=== PATIENT | female | born 1995 | race Caucasian/White ===

== ENCOUNTER 2024-09-11 00:17 | Day surgery (SDC) | payer BC, SELFPAY ==
[2024-09-02 15:14] VITALS: BMI 32.3
--- NOTE | 2024-09-02 15:39 | PC.NURSE ---
Report to the Outpatient Waiting Room, entrance under the green pavilion located off [facility], at time __10:00AM on date ___09/11/24____. Planned Procedure Time: __12:00PM .? Time changes happen often and if your time is changed the preop area will call you the afternoon before. - You and your visitor will be asked to self-screen and do not enter if you have any COVID symptoms. Please call surgeon if you need to reschedule. - A mask is optional within the hospital at this time. Patients may have clear liquids (water, carbonated beverages, clear teas, apple juice) until 3 hours prior to surgery with a maximum of 20 ounces. - No food from midnight until time of surgery and no smoking. This includes no chewing gum, candy or mints. Take only the following medications with a SIP of water on the morning of surgery: ALBUTEROL & ZOFRAN NEEDED. DO NOT STOP ANY OF YOUR OTHER PRESCRIPTION MEDICATIONS PRIOR TO SURGERY EXCEPT THE FOLLOWING Medications to discontinue per physician NONE Date to take last dose Please no make-up, nail turkmen, hairspray, perfume, deodorant, or body powder the day of surgery.? No jewelry (including any body piercings) or valuables the day of surgery, leave them at home.? Please take a shower or bath the night before, or the morning of, surgery with an antibacterial soap.? Wear comfortable, loose fitting clothing.? Children are encouraged to wear pajamas. - Jewelry must be removed prior to entering the operating room.? Rings and piercings that are not removed may be cut off. - The hospital will not accept responsibility for valuables.? - Please leave all valuables, including medications, at home the day of surgery. If you are going home after surgery, a licensed flatbed truck driver must drive you home.? - NO public transportation without another adult if you receive anesthesia. - We recommend that an adult stay with you for 24 hours following discharge. - We also recommend that you do not drive, make important decision, drink alcoholic beverages, or take any drugs that were not prescribed by your health care provider for at least 24 hours after your discharge time. Follow any additional instructions given to you from your surgeon. Telephone instructions given to PATIENT and asked if any additional questions and then verbalized understanding. Patient advised to call surgeon office or pre surgery nurse liaison [phone] if any additional questions.
[2024-09-11] VITALS (8 sets, daily range): BP systolic 109–137; BP diastolic 80–90; PULSE 94–120; RESP 13–20; TEMP 35.9–36.1; O2SAT 98–100
[2024-09-11] MEDS: ACETAMINOPHEN 500 MG TABLET 1000 MG PO (11:00)
[2024-09-11] MEDS: LACTATED RINGERS 1,000 ML 30 ML IV CONT (11:00)
[2024-09-11] MEDS: KETOROLAC 15 MG/ML VIAL (*BKC) IV PUSH (11:00)
[2024-09-11 11:06] LABS: BEDSIDEPREGUCG Negative (Negative)
--- NOTE | 2024-09-11 11:14 | WPDANESEPPF ---
Anes - Initial Pre Proc Eval Procedure: Operation Date: 09/11/24 12:00 Proposed Procedures p Anal Fistulotomy, Rectal Examination Under Anesthesia - Fritz Leo DO Date/Time: 09/11/24 11:14 Surgeon: Fritz Leo DO Pre Op Diagnosis: Anal Fistulotomy IBS Patient Data Age: 29 Gender: F Height: 1.52 m Weight: 77.1 kg Last Vital Signs Temp 96.7 F L 09/11/24 11:00 Pulse 113 H 09/11/24 11:00 Resp 14 09/11/24 11:00 BP 137/83 09/11/24 11:00 Pulse Ox 100 09/11/24 11:00 O2 Del Method Room Air 09/11/24 11:00 Allergies Allergy/AdvReac Type Severity Reaction Status Date / Time clavulanic acid (From Allergy RASH Verified 09/11/24 11:06 Augmentin) penicillin G Allergy Rash Verified 09/11/24 11:06 ciprofloxacin AdvReac Nausea and Verified 09/11/24 11:06 Vomiting Home Medications ?Medication ?Instructions ?Recorded ?Confirmed ?Type albuterol sulfate 90 mcg/actuation 1 inh inhalation Q4H PRN shortness 07/21/24 09/02/24 History aerosol inhaler of breath or wheezing amitriptyline 50 mg tablet 50 mg PO DAILY 07/21/24 09/02/24 History atogepant 30 mg tablet (Qulipta) 30 mg PO DAILY 07/21/24 09/02/24 History drospirenone (contraceptive) 4 mg 4 mg PO DAILY 07/21/24 09/02/24 History (28) tablet (Slynd) duloxetine 60 mg capsule,delayed 60 mg PO DAILY 07/21/24 09/02/24 History release (Cymbalta) hydroxyzine HCl 10 mg tablet 10 mg PO DAILY 07/21/24 09/02/24 History ketorolac 10 mg tablet 10 mg PO .prn PRN pain 07/21/24 09/02/24 History methocarbamol 500 mg tablet 500 mg PO QHS PRN muscle spasm 07/21/24 09/02/24 History omeprazole 40 mg capsule,delayed 40 mg PO DAILY 07/21/24 09/02/24 History release ondansetron HCl 4 mg tablet 4 mg PO Q8H PRN nausea and vomiting 07/21/24 09/02/24 History colestipol 1 gram tablet 1 g PO BID PRN diarrhea 09/02/24 09/02/24 History Laboratory Tests 09/11/24 10:15 POC Urine HCG, Qual Negative (Negative) Patient hx anesthesia problems: none Family hx anesthesia problems: none Results Review: All pre-operative results and documents have been reviewed as part of the pre-operative evaluation. [facility] Past Medical History Medical History Boil of buttock Lower abdominal pain Chest pain Dysphagia IBS (irritable bowel syndrome) GERD (gastroesophageal reflux disease) Anxiety Asthma Allergies Surgical History Surgical History History of laparoscopy History of tonsillectomy and adenoidectomy Family History Family History Mother Diabetes mellitus Other Lung cancer Skin cancer Social History Social History Smoking status: Never smoker Second hand tobacco smoke exposure: No Alcohol intake: never Substance use: never Anes - Eval Final PreProcedure Day of Procedure 09/11/24 11:14 Patient weight: obese Heart: regular rate and rhythm Lungs: clear to auscultation Airway: Mallampati scale class II Neurological: alert and oriented Last oral intake: >/= 8 hours ASA classification: III Emergent: no Anesthetic plan: proceed Anesthesia type and monitoring: general LMA and standard monitoring Results Review: All pre-operative results and documents have been reviewed as part of the pre-operative evaluation. Asthma, stable of recent. Hx of tracheomalacia per parents w prev bronch dx. Pt without any further information and unable to access records from [facility]. Pt has no symptoms of dyspnea or cp w activity. Informed Consent: The patient's anesthetic plan and its attendant risks and benefits were discussed with the patient/family/POA. Questions were solicited and answers provided to the satisfaction of the patient/family/POA.
--- NOTE | 2024-09-11 11:23 | WPDHPUPDATE1 ---
History and Physical Update Update Date/Time: 09/11/24 11:23 History and Physical has been reviewed, including an updated exam of the patient. There are NO changes in the patient's condition. Risks, benefits, and alternatives have been discussed and questions answered. Patient agrees to proceed with procedure.
[2024-09-11] MEDS: ceFAZolin 2 GM/D5W 50 ML 2 GM/50 ML BAG IVPB (11:46)
[2024-09-11] MEDS: BUPIVACAINE/EPINEPHRINE 0.5% 50 ML VIAL 30 ML INFILTRATE (11:58)
--- NOTE | 2024-09-11 12:29 | P.OP_ITS ---
Procedure Note - Detailed Date of Procedure 09/11/24 Pre-op Diagnosis Anal Fistula Post-op Diagnosis Same (Intersphincteric anal fistula) Procedure Performed Rectal exam under anesthesia with intersphincteric anal fistulotomy Surgeon Fritz Leo, DO Anesthesia General and Local (0.5% bupivacaine with epinephrine) Indications This is a 29-year-old woman who presented with intermittent drainage from a small wound near her anus. She has a prior history of a perianal abscess and has been doing with this for several months. 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 Discussions were made with the patient about treatment options and decision was made to proceed with rectal exam under anesthesia with anal fistulotomy. Findings Rectal exam under anesthesia was performed. Patient had an external wound opening in the left anterior region about 2 cm from the anal verge. This tract internally to the anterior midline anal canal. This appeared to encompass a few sphincter muscle fibers but did not appear to go suprasphincteric. A fistuloto my incision was made directly over the fistula tract. The chronic granulation tissue was debrided with electrocautery to aid with healing. No specimens were obtained for pathology. No other anorectal abnormalities were noted. Description of Procedure Procedure as well as risks, benefits, and alternatives were discussed with the patient. Written consent was obtained and placed in chart prior to procedure. Patient was brought back to surgical suite. She was placed supine on operating table. Time-out was done to confirm patient and procedure. She was then intubated by the anesthesia department. She was then repositioned into dorsal lithotomy position. Her perirectal area was prepped and draped in sterile fashion using Betadine prep. Digital rectal exam was initially performed. A medium Hill-Romero anoscope was then inserted and the anal rectal canal was carefully inspected. The left anterior wound opening was identified on the left perianal skin. A small lacrimal probe was inserted through this opening and this was gently tract along its path into the anterior midline. The fistula tract was identified all the way to the internal opening. 0.5% bupivacaine with epinephrine was infiltrated locally around this area and then an incision was made using a 15 blade scalpel directly over the tract. Electrocautery was then used for hemostasis and for dissection through the subcutaneous tissue and through the few internal sphincter muscle fibers until the fistula tract was completely opened up. Electrocautery was then used to debride the chronic granulation tissue within the fistula tract. The wound was then irrigated with sterile saline no other abnormalities were identified and hemostasis appeared adequate. Xeroform gauze was then applied followed by 4 x 4 gauze, ABD pad, and mesh underwear. The patient was then awakened from anesthesia, extubated, and transferred to recovery. Estimated Blood Loss 5 Complications No immediate complications Condition Stable Disposition Same day [facility] Billing Surgery - Charge Forward: Surgery Billing
--- OUTSIDE RECORDS SUMMARY | 2024-09-18 00:48 | XMS_ITS ---
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 Name Role Phone MikeyDemetria Primary Care Provider Migration, Provider Unavailable Unavailable Allergies Allergen (clinical drug ingredient) Drug/Non Drug Allergy documented on EMR Reaction Allergy Type Onset Date Status Penicillin G Benzathine Unknown Drug Allergy Active ciprofloxacin Cipro Unknown Drug Allergy Act paresh amoxicillin / clavulanate Augmentin Unknown Drug Allergy Active REASON FOR VISIT [facility] To [facility] Conversion Encounter Medications Medication SIG (Take, Route, Frequency, Duration) Notes Start Date End Date Status hydrOXYzine HCl 10 MG/5ML 10 mL orally 4 times a day 03/26/2024 Active Amitriptyline HCl 50 MG 1 tab(s) orally once a day (at bedtime) for 30 day(s) 03/26/2024 Active Ondansetron HCl 4 MG 1 tab(s) orally sharron ry 8 hours 03/26/2024 Active Albuterol Sulfate HFA 108 (9 0 Base) MCG/ACT for 16 Days Active Levocetirizine Dihydrochloride 5 MG 1 tab(s) orally once a day (in the evening) for 30 day(s) 03/26/2024 Active Sertraline HCl 25 MG 1 tab(s) orally onc e a day Active Qulipta 30 MG for 30 Days Acti ve Methocarbamol 500 MG for 8 Days Active Slynd 4 MG for 28 Days Active Ketorolac Tromethamine 10 MG 1 tab(s) or ally 4 times a day for 5 day(s) 03/26/2024 Active Naratriptan HCl 1 MG 1 tab(s) orally onc e a day Active [facility]ters En[facility] [address] [address] [facility] Provider Migration Plan Of Treatment No Information Progress Notes * Tee PACHECOOB:1995 (29 yo F)Acc No.[id number]:08/01/2024 Patient:?Obdulia PACHECO Provider:?Provider Migration :1995???Age:29 Y???Sex:Female D ate:08/01/2024 Phone: Address:[address] [place] [address] , [facility], [id number] Pcp:Demetria Jensen Subjective: * Chief Complaints: * ???1. Multum To Medispan Con version Encounter. * Medical History:? * Medications:?Taking Naratrip grant HCl 1 MG Tablet 1 tab(s) orally once a day , Taking Sertraline HCl 25 MG Tablet 1 tab(s) orally once a day , Taking Qulipta(Atogepant) 30 MG Tablet , Taking Methocarbamol 500 MG Tablet , Taking Slynd(Drospirenone) 4 MG Tablet , Taking Ketorolac Tromethamine 10 MG Tablet 1 tab(s) orally 4 times a day , Taking hydrOXYzine HCl 10 MG/5ML Syrup 10 mL orally 4 times a day , Taking Amitriptyline HCl 50 MG Tablet 1 tab(s) orally once a day (at bedtime) , Taking Ondansetron HCl 4 MG Tablet 1 tab(s) orally every 8 hours , Taking Albuterol Sulfate HFA 108 (90 Base) MCG/ACT Aerosol Solution , Taking Levocetirizine Dihydrochloride 5 MG Tablet 1 tab(s) orally once a day (in the evening) * Allergies:?Penicillin G Bandar athine, Augmentin, Cipro. Objective: * Vitals:? Assessment: Plan: * Treatment: * Billing Information: * Visit Code:? * Procedure Codes:? * Electronic signature of Prov ider Migration on 09/18/2024 at 12:48 AM AIR BRAKE MAN Sign off status: Pending * Provider:?Provider Migration Date:?08/01 Generated for Chris carmona/Carlos/Tavon on:?09/18/2024 12:48 AM AIR BRAKE MAN
--- OUTSIDE RECORDS SUMMARY | 2024-09-18 00:48 | XMS_ITS ---
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 [address], [place] [address] * true * Date:? Generated for Printi ng/Fadeborahg/eTransmitting on:?09/18/2024 12:48 AM GROUND SYSTEMS ENGINEER
--- OUTSIDE RECORDS SUMMARY | 2024-09-18 00:48 | XMS_ITS ---
Author Organization [employer] [facility] Address [address] [place] [address] Care Team Providers Care Fur Ironer Name Role Phone Demetria Jensen Primary Care Provider Usha Sesay Unavailable [phone] REASON FOR VISIT Go over biopsy pathology results Encounters Encounter Location Date Provider Diagnosis [facility] [address] [place] [address] 04/30/2024 Usha Sesay Plan Of Treatment No Information Progress Notes * Tee PACHECOOB:1995 (29 yo F)Acc No.[id number]:04/30/2024 Progress Notes Patient:?Obdulia PACHECO Provider:?RICARDO Bello :1995???Age:29 Y???Sex:Female D ate:04/30/2024 Phone: Address[address] [id number] Pcp:Demetria Jensen Subjective: * Chief Complaints: * ???1. Go over biopsy patholo gy results. * Medical History:? Objective: * Vitals:? Assessment: Plan: * Treatment: * Billing Information: * Visit Code:? * Procedure Codes:? * Electronic signature of RICARDO Bañuelos on 09/18/2024 at 12:48 AM WILD OYSTER HARVESTER Sign off status: Pending * Provider:?RICARDO Bello Date:?04/16 Generated for Printi ng/Faxing/eTransmitting on:?09/18/2024 12:48 AM WILD OYSTER HARVESTER
--- OUTSIDE RECORDS SUMMARY | 2024-09-18 00:48 | XMS_ITS | Patient Health Record ---
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 Role Phone Demetria Jensen Primary Care Provider [phone] Usha Sesay Unavailable [phone] Migration, Provider Unavailable Unavailable Allergies Allergen (clinical drug ingredient) Drug/Non Drug Allergy documented on EMR Reaction Allergy Type Onset Date Status Penicillin G Benzathine Unknown Drug Allergy Active ciprofloxacin Cipro Unknown Drug Allergy Act paresh amoxicillin / clavulanate Augmentin Unknown Drug Allergy Active Results Component Value Reference Range Notes ACTH, PLASMA Reviewed date:04/10/2024 10:07:20 AM Interpretation: Performing Lab:[facility], [address] [facility] , [place], [address] Barrington Pinedo M.D.,PhD Notes/Report: FASTING:YES AN UPDATE OR CORRECTION HAS BEEN MADE TO NAME FASTING: YES COMFORT IFA SCREEN W/REFL TO TIT ER AND PATTERN, IFA Reviewed date:04/10/2024 10:07:21 AM Interpretation: Performing Lab:[facility], [address] [place], [address] Mimi Poe MD Notes/Report: FASTING:YES AN UPDATE OR CORRECTION HAS BEEN MADE TO NAME FASTING: YES T3, FREE Reviewed date:04/10/2024 10:07:21 AM Interpretation: Performing Lab:[facility], [address] [place], [address] Mimi Poe MD Notes/Report: FASTING:YES AN UPDATE OR CORRECTION HAS BEEN MADE TO NAME FASTING: YES CORTISOL, TOTAL Reviewed date:04/10/2024 10:07:21 AM Interpretation: Performing Lab:[facility], [address], [place], [address] Mimi Poe MD Notes/Report: FASTING:YES AN UPDATE OR CORRECTION HAS BEEN MADE TO NAME FASTING: YES DHEA SULFATE Reviewed date:04/10/2024 10:07:21 AM Interpretation: Performing Lab:[facility], [facility], [address], [place], [address] Mimi Poe MD Notes/Report: FASTING:YES AN UPDATE OR CORRECTION HAS BEEN MADE TO NAME FASTING: YES ESTRADIOL Reviewed date:04/10/2024 10:07:21 AM Interpretation: Performing Lab:[facility], [facility], [address], [place], [address] Mimi Poe MD Notes/Report: FASTING:YES AN UPDATE OR CORRECTION HAS BEEN MADE TO NAME FASTING: YES RHEUMATOID FACTOR Reviewed date:04/10/2024 10:07:21 AM Interpretation: Performing Lab:[facility], [facility], [address], [place], [address] Mimi Poe MD Notes/Report: FASTING:YES AN UPDATE OR CORRECTION HAS BEEN MADE TO NAME FASTING: YES FSH Reviewed date:04/10/2024 10:07:21 AM Interpretation: Performing Lab:[facility], [facility], [address], [place], [address] Mimi Poe MD Notes/Report: FASTING:YES AN UPDATE OR CORRECTION HAS BEEN MADE TO NAME FASTING: YES LH Reviewed date:04/10/2024 10:07:21 AM Interpretation: Performing Lab:[facility], [facility], [address], [place], [address] Mimi Poe MD Notes/Report: FASTING:YES AN UPDATE OR CORRECTION HAS BEEN MADE TO NAME FASTING: YES PROGESTERONE Reviewed date:04/10/2024 10:07:21 AM Interpretation: Performing Lab:[facility], [facility], [address], [place], [address] iMmi Poe MD Notes/Report: FASTING:YES AN UPDATE OR CORRECTION HAS BEEN MADE TO NAME FASTING: YES T4, FREE Reviewed date:04/10/2024 10:07:21 AM Interpretation: Performing Lab:[facility], [email or web address], [address], [place], [address] Mimi Poe MD Notes/Report: FASTING:YES AN UPDATE OR CORRECTION HAS BEEN MADE TO NAME FASTING: YES PTH, INTACT AND CALCIUM Reviewed date:04/10/2024 10:07:21 AM Interpretation: Performing Lab:[facility], [facility], [address], [place], [address] Mimi Poe MD Notes/Report: FASTING:YES AN UPDATE OR CORRECTION HAS BEEN MADE TO NAME FASTING: YES TSH Reviewed date:04/10/2024 10:07:21 AM Interpretation: Performing Lab:[facility], [email or web address], [address], [place], [address] Mimi Poe MD Notes/Report: FASTING:YES AN UPDATE OR CORRECTION HAS BEEN MADE TO NAME FASTING: YES TESTOSTERONE, FREE (DIALYSIS ) AND TOTAL,MS Reviewed date:04/10/2024 10:07:21 AM Interpretation: Performing Lab:[facility], [facility], [address] [place] [address], [address], [place], [address] Kyle Lanza MD,PhD Notes/Report: FASTING:YES AN UPDATE OR CORRECTION HAS BEEN MADE TO NAME FASTING: YES TESTOSTERONE, TOTAL, MS 28 2-45 ng/dL For additional information, please refer to https://[email or web address]/faq/KXI534 (This link is being provided for informational/educational purposes only.) (Note) This test was developed and its analytical performance characteristics have been determined by [employer]. It has not been cleared or approved by the FDA. This assay has been validated pursuant to the CLIA regulations and is used for clinical purposes. TESTOSTERONE, FREE 4.8 0.1-6.4 pg/mL (Note) This test was developed and its analytical performance characteristics have been determined by [employer]. It has not been cleared or approved by the FDA. This assay has been validated pursuant to the CLIA regulations and is used for clinical purposes. [facility] [address] [address],[address] [facility] [address] Kyle Lanza MD, PhD [place] [address] [facility] [address] [place] [address] Diagnosis 1 Nontoxic multinodula r goiter (E04.2) Diagnosis 2 Dysphagia, unspecifi ed (R13.10) Referral Organization [facility], [facility] - Demetria Jensen Referring Provider First Name Usha Referring Provider Last Name Lázaro Referring Provider Speciality Family Pra ctice Referral Priority Routine Medications Medication SIG (Take, Route, Frequency, Duration) [...] the evening) for 30 day(s) 03/26/2024 Active Naratriptan HCl 1 MG 1 tab(s) orally onc e a day Active Sertraline HCl 25 MG 1 tab(s) orally onc e a day Active Qulipta 30 MG for 30 Days Acti ve Methocarbamol 500 MG for 8 Days Active Slynd 4 MG for 28 Days Active Ketorolac Tromethamine 10 MG 1 tab(s) or ally 4 times a day for 5 day(s) 03/26/2024 Active Problems Problem Type SNOMED Code ICD Code Onset Dates Problem Status W/U Status Risk Notes Problem Non-toxic multinodular goiter (89428027) Nontoxic multinodular goiter (E04.2) Active confirmed Problem Dysphagia (77732254) Dysphagia, unspecified (R13.10) Active confirmed Vital Signs Heart Rate 97 /min 03/26/2024 Blood pressure diastolic 82 mm Hg 03/26/2024 Height 60 in 04/27/2024 Blood pressure systolic 138 mm Hg 03/26/2024 Weight 164.0 lbs 03/26/2024 BMI 32.03 kg/m2 03/26/2024 Encounters Encounter Location Date Provider Diagnosis [facility] [address] [address] 08/01/[address] [facility]- Dr. Christensen [address] [place] [address] 03/26/2024 Usha Sesay Nontoxic multinodular goiter E04.2 ; Pain in unspecified joint M25.50 ; Abnormal results of other endocrine function studies R94.7 and Dysphagia, unspecified R13.[address] [facility] - Demetria Jensen [address] [place] [address] 04/09/2024 Demetriasusana Jensen [employer] - Demetria Jensen [address] [place] [address] 04/14/2024 Demetria [facility] [facility] [address] [place] [address] 04/30/[address] [facility]- Dr. Christensen [address] [place] [address] 04/27/2024 Usha Sesay Dysphagia, unspecified R13.10 ; Nontoxic multinodular goiter E04.2 and Person consulting for explanation of examination or test findings Z71.2 Assessments Encounter Date Diagnosis (ICD Code) Assessment Notes Treatment Notes Treatment Clinical Notes Section Notes 03/26/2024 Pain in unspecified joint (ICD-10 - M25.50) -Will complete w/u for potential RA. -COMFORT, RF ordered. 03/26/2024 Nontoxic multinodular goiter (ICD-10 - E04.2) -Palpable nodules present. -Contacted both Dr. Villareal office as well as local ENT who recommended pt complete FNA through IR department. -Chika Reece) was able to get patient in on April 08 at 1:00pm. Mother will bead picker US thyroid disc from [facility] and bring to her appt. 04/27/2024 Nontoxic multinodular goiter (ICD-10 - E04.2) 04/27/2024 Dysphagia, unspecified (ICD-10 - R13.10) -Referral placed with Dr. Vin Christopher per pt request d/t continued dysphagia. Will send over documentation from her previous notes/labs to his office. -Faxed to: [phone] 03/26/2024 Abnormal results of other endocrine function studies (ICD-10 - R94.7) -Will obtain TSH, Free T3, Free T4, TPO antibodies, CBC, CMP, HgbA1c -Will obtain pth, acth as well 04/27/2024 Person consulting for explanation of examination or test findings (ICD-10 - Z71.2) 03/26/2024 Dysphagia, unspecified (ICD-10 - R13.10) -Pt endorses some dysphagia in the last two months. Pt endorses anxiety as well with nerves of being unsure on diagnosis of nodules. 03/26/2024 Other -Given her hx of endometriosis will obtain hormones: dhea-s, estradiol, lh, fsh, progesterone, testosterone. -Spoke with mother and patient to discuss potentially completing genetic w/u to determine cause of nodules if non-cancerous. Case discussed with Usha Sesay NP and I agree with plan and recommendations. 04/27/2024 Other Due to the natu re of telemedicine/tele phonic visit, the ability to do physical assessment was limited to what can be accomplished by patient directed telephonic visit based on instruction. Those limits are understood by the patient and myself. Impression is based on history, available information, and physical findings accomplished with telephonic visit. Chronic disease/problem list/medication list reviewed and updated where indicated. Discussed diagnosis, plan including risks, benefits, and options of treatment. Advised to call for new, worsening or persistent symptoms. Level of patient risk was of moderate complexity due to the documented nature of presentation, the information assessment required and the nature of the development of an evaluation and treatment plan as documented PMH, FHx, SHx, Surgical HX, Quality Management review carried out and addressed as documented today as part of this visit. Medication list was reviewed and adjusted as indicated. Medication requiring a refill was addressed. Risks and benefits of any new medications were discussed and all questions were answered. Plan Of Treatment Pending Test Test Name Order Date FNA needle thyroid biopsy 03/26/2024 Insurance Providers Payer Name Payer Address Payer Phone Subscriber Number Group Number Insured Name Patient Relationship to Insured Coverage Start Date Coverage End Date [employer] [place] [address] [address] [place] [address] [id number] Obdulia Stephens Self - patient is the insured Medical (General) History Medical History History ICD Code chronic pain IC IBS Acid Reflux Asthma Allergies Enometriosis Sleep Apnea migraine headache Follicular cysts Surgical History Surgery Date(Month/Year) bronchoscopy adenoidectomy tonsillectomy Sinus Surgery
== END 2024-09-11 13:55 | disposition home or self-care (01) ==
PROVIDERS: PCP Pediatrics; Visit Provider Surgery
PROC: (CPT 46275; principal; 2024-09-11 12:00)
DX: K60.30 Anal fistula, unspecified (principal); F41.9 Anxiety disorder, unspecified; J45.909 Unspecified asthma, uncomplicated; K21.9 Gastro-esophageal reflux disease without esophagitis; K58.9 Irritable bowel syndrome, unspecified; E66.9 Obesity, unspecified; Z68.33 Body mass index [BMI] 33.0-33.9, adult; Z79.51 Long term (current) use of inhaled steroids; Z98.890 Other specified postprocedural states; Z80.1 Family history of malignant neoplasm of trachea, bronchus and lung; Z84.0 Family history of diseases of the skin and subcutaneous tissue
CPT/HCPCS: 46275; A9270; J0330; J0690; J1100; J1885; J2250; J2405; J2704; J3010; J7120